=== PATIENT | male | born 1990 | race Caucasian/White ===

== ENCOUNTER 2022-11-18 14:47 | Emergency (ER) | payer OTHER ==
[~2022-11-18] VITALS: Ht 180.3 cm; Wt 95.7 kg
[2022-11-18 15:06] VITALS: BP_SYST 142
--- NOTE | 2022-11-18 15:42 | NUR ---
Patient to ER bed 02 to gown for evaluation. Side rails up. Report given to Debbie MONTOYA.
[2022-11-18] MEDS ORDERED: LIDOCAINE 1% 10 MG/ML, 20 ML MDV INJ ONE (15:45)
--- NOTE | 2022-11-18 15:45 | NUR ---
PATIENT BROUGHT IN FOR ABCESS IN RIGHT BUTTOCK. REDNESS AND SWELLING NOTED.
--- NOTE | 2022-11-18 15:46 | NUR ---
ER at bedside examining patient.
--- NOTE | 2022-11-18 15:52 | NUR ---
I&D Procedure done by Dr DAVID muir using sterile technique. Lidocaine 1% used. 4x4 APPLIED TO wound. MINIMAL amt of bleeding noted. Wound care discussed w/ patient. Pt tolerated procedure well.
[2022-11-18] MEDS ORDERED: NAPR-690 PO (15:57)
[2022-11-18] MEDS ORDERED: CEPH-548 PO (15:57)
[2022-11-18 16:09] VITALS: BP_SYST 132
--- NOTE | 2022-11-18 16:09 | NUR ---
Patient given written and verbal discharge instructions and verbalizes understanding. ER MD discussed with patient the results and treatment provided. Patient in stable condition. ID arm band removed. Rx of CEPHALEXIN AND NAPROXEN given. Patient educated on pain management and to follow up with PMD. Pain Scale 0/10 Opportunity for questions provided and answered. Medication side effect fact sheet provided.
== END 2022-11-18 16:09 | disposition home or self-care (01) ==
LOC: SED 14:47
DX: K61.1 Rectal abscess (principal); K62.89 Other specified diseases of anus and rectum; Z79.899 Other long term (current) drug therapy
CPT/HCPCS: 46050; 99284; J2001